=== PATIENT | male | born 2000 | race Caucasian/White ===

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

== ENCOUNTER 2024-04-14 13:06 | Emergency (ER) | payer SELFPAY ==
[~2024-04-14] VITALS: Ht 170.2 cm; Wt 127.3 kg
[2024-04-14 13:17] VITALS: BP 135/83; TEMP 98.3
[2024-04-14] MEDS ORDERED: NORCO 325 MG-51 TAB PO (15:16)
[2024-04-14 15:30] VITALS: PULSE 72
== END 2024-04-14 15:30 | disposition home or self-care (01) ==
LOC: COL.ER 13:06
DX: S42.401A Unspecified fracture of lower end of right humerus, initial encounter for closed fracture (principal); W01.198A Fall on same level from slipping, tripping and stumbling with subsequent striking against other object, initial encounter; Y93.01 Activity, walking, marching and hiking; Z87.891 Personal history of nicotine dependence

== ENCOUNTER 2024-04-21 17:05 | Emergency (ER) | payer OTHER ==
[~2024-04-21] VITALS: Ht 170.2 cm; Wt 125.9 kg
[~2024-04-21 17:05] MED LIST: NORCO 325 MG-51 TAB PO
[2024-04-21 17:13] VITALS: BP 152/98; TEMP 98.4
[2024-04-21] MEDS ORDERED: PERCOCET 325 MG1 TA2 PO (18:37)
[2024-04-21] MEDS ORDERED: oxyCODONE/Acetaminophen 5-325 MG TAB PO ONE (18:45)
[2024-04-21 18:53] VITALS: PULSE 91
== END 2024-04-21 18:53 | disposition home or self-care (01) ==
LOC: COL.ER 17:05
DX: S42.401A Unspecified fracture of lower end of right humerus, initial encounter for closed fracture (principal); W01.0XXA Fall on same level from slipping, tripping and stumbling without subsequent striking against object, initial encounter